=== PATIENT | female | born 1985 ===

== ENCOUNTER 2020-09-25 16:01 | Emergency (ER) | payer SELFPAY ==
--- NOTE | 2020-09-25 16:08 | NUR ---
[facility] BROUGHT THE PT. THROUGH THE BACK DOOR. SHE WAS SITTING IN THE [place] WITH 2 PEOPLE FROM [facility], WHO WERE IN THE PROCESS OF WRITTING A 5150. PT. GOT UP AND WALKED OUT THE AMBULANCE BAY DOOR WITH BOTH WORKERS FOLLOWING HER. I ASKED THE [facility] EMPLOYEES IF THEY WERE GOING TO CALL [employer] TO PICK HER UP.... THEY SAID NO THAT THEY HAND NOT FINISHED THE 5150..... "YOU WILL PROBLEY SEE HER AGAIN TONIGHT"..
== END 2020-09-25 16:21 | disposition left against medical advice (07) ==
LOC: ER 16:01
DX: F29 Unspecified psychosis not due to a substance or known physiological condition (principal); Z53.21 Procedure and treatment not carried out due to patient leaving prior to being seen by health care provider